=== PATIENT | male | born 1985 | race Hispanic/Latino ===

== ENCOUNTER 2017-10-10 21:39 | Emergency (ER) | payer OTHER ==
[2017-10-10] MEDS ORDERED: SODIUM CHLORIDE 0.9% 1000ML 1,000 ML IVS ONE (21:49)
--- NOTE | 2017-10-10 21:59 | ED.PDOC ---
History of Present Illness - General Chief Complaint: Cardiovascular Problem Stated Complaint: shortness of breath, chest pain Time Seen by Provider: 10/10/17 21:48 Source: patient, RN notes reviewed, Vital Signs reviewed Exam Limitations: no limitations Additional Information: pt reports that is having an anxiety attack, reports that has been injecting testosterone off the street and smoking THC. pt feels racing heart beat, no chest pain. EMS reports cramping to his hands and tingling to lips/ fingers as well as hyperventilation. no syncope, no edema to legs, no history of blood clot / KS/ CVA - History of Present Illness Timing/Duration: 1 hour Severity/Quality: moderate Location: substernal, other - palpitations Chest Pain Radiation: no radiation Activities at Onset: emotional stress Prior Chest Pain/Cardiac Workup: no prior chest pain Improving Factors: nothing Worsening Factors: nothing Associated Symptoms: shortness of breath Allergies/Adverse Reactions: Allergies NO KNOWN ALLERGY Allergy (Verified 10/10/17 21:50) Home Medications: Ambulatory Orders LORazepam [Ativan] 0.25 mg PO DAILY PRN #5 tab 10/10/17 Potassium Chloride [Potassium Chloride ER] 20 meq PO DAILY #3 tab 10/10/17 Sulfamethoxazole-Trimethoprim [Bactrim Ds 800-160 mg] 1 tablet PO BID #14 tablet 10/10/17 Review of Systems - Review of Systems Constitutional: States: no symptoms reported EENTM: States: no symptoms reported Respiratory: States: short of breath Cardiology: States: palpitations Gastrointestinal/Abdominal: States: nausea Genitourinary: States: no symptoms reported Musculoskeletal: States: other - cramping Skin: States: other - tingling Neurological: States: anxiety, paresthesia - to lips/ fingers Endocrine: States: no symptoms reported Hematologic/Lymphatic: States: no symptoms reported Past Medical History (General) - Patient Medical History Hx MRSA: Yes - Abdomen 2008; Armpit 2013 MRSA Source:: Wound Family Medical History - Family History Mother Family History: Unknown Physical Exam - Physical Exam General Appearance: Agitated, Alert, Anxious, Restless Eyes, Ears, Nose, Throat Exam: PERRL/EOMI, normal ENT inspection, TMs normal, pharynx normal Neck: non-tender, full range of motion, supple Respiratory: other - deep tachypnic breathing, no acetone lungs clear Cardiovascular/Chest: tachycardia Peripheral Pulses: radial,right: 2+, radial,left: 2+ Gastrointestinal/Abdominal: normal bowel sounds, non tender, soft Extremity: normal range of motion, non-tender, normal inspection, no pedal edema Neurologic: no motor/sensory deficits, alert, oriented x 3, other - anxious appearing, generalized non rhythmic tremor Skin Exam: normal color, warm/dry Progress - Progress Progress: 10/10/17 22:01 Discussed with patient his need to not take medications that were not prescribed to him. Discussed dangers of street medications and illicit drug use. Discussed side effects of Testosterone use. 10/10/17 22:04 EK10/10/17 time 21:57 sinus tachycardia, left atrial enlargement, rate 102, pr 146, qrs 90, qtc 445 10/10/17 22:35 pt feeling improved, discussed treatment for anxiety and advised close f/u; will return if acute problem; leukocytosis and hypokalemia in blood work, given self injections will treat for infection related to this. 10/10/17 21:49 URINE DRUG SCREEN, 7 ASSAY Stat Sodium Chloride 0.9% 1000ML [Ns 1000 ml] 1,000 ml IVS ONCE 10/10/17 22:00 EKG STAT 10/10/17 22:24 URINALYSIS Stat Laboratory Results WBC 14.9 K/mm3 (4.8-10.8) H 10/10/17 21:49 RBC 4.78 M/mm3 (4.70-6.10) 10/10/17 21:49 Hgb 14.7 gm/dL (14.0-18.0) 10/10/17 21:49 Hct 43.8 % (42.0-52.0) 10/10/17 21:49 MCV 91.6 fl (80.0-94.0) 10/10/17 21:49 MCH 30.8 pg (27.0-31.0) 10/10/17 21:49 MCHC 33.6 g/dL (33.0-37.0) 10/10/17 21:49 RDW 13.6 % (11.5-14.5) 10/10/17 21:49 Plt Count 246 K/mm3 (130-400) 10/10/17 21:49 MPV 8.8 fl (7.40-10.4) 10/10/17 21:49 Absolute Neuts (auto) 8.70 K/uL (1.8-6.8) H 10/10/17 21:49 Absolute Lymphs (auto) 3.90 K/uL (1.0-3.4) H 10/10/17 21:49 Absolute Monos (auto) 1.00 K/uL (0.2-0.8) H 10/10/17 21:49 Absolute Eos (auto) 1.20 K/uL (0.0-0.4) H 10/10/17 21:49 Absolute Basos (auto) 0.10 K/uL (0.0-0.1) 10/10/17 21:49 Neutrophils % 58.4 % (42.0-78.0) 10/10/17 21:49 Lymphocytes % 26.5 % (20.0-50.0) 10/10/17 21:49 Monocytes % 6.7 % (2.0-9.0) 10/10/17 21:49 Eosinophils % 7.9 % (1.0-5.0) H 10/10/17 21:49 Basophils % 0.5 % (0.0-2.0) 10/10/17 21:49 PT 11.8 SECONDS (9.4-12.5) 10/10/17 21:49 INR 1.020 10/10/17 21:49 PTT (SP) 32.2 SECONDS (25.1-36.5) 10/10/17 21:49 Sodium 139 mmol/L (135-145) 10/10/17 21:49 Potassium 2.7 mmol/L (3.6-5.0) L 10/10/17 21:49 Chloride 103 mmol/L (101-111) 10/10/17 21:49 Carbon Dioxide 27 mmol/L (21-31) 10/10/17 21:49 Anion Gap 11.7 (12-18) L 10/10/17 21:49 BUN 19 mg/dL (7-18) H 10/10/17 21:49 Creatinine 1.25 mg/dL (0.6-1.3) 10/10/17 21:49 BUN/Creatinine Ratio 15.2 (10-20) 10/10/17 21:49 Random Glucose 112 mg/dL (70-105) H 10/10/17 21:49 Serum Osmolality 280.5 mOsm/L (275-295) 10/10/17 21:49 Calcium 9.3 mg/dL (8.4-10.2) 10/10/17 21:49 Magnesium 2.1 mg/dL (1.8-2.5) 10/10/17 21:49 Total Bilirubin 0.7 mg/dL (0.2-1.0) 10/10/17 21:49 Direct Bilirubin 0.1 mg/dL (0-0.2) 10/10/17 21:49 Indirect Bilirubin 0.6 mg/dL (0.2-0.8) 10/10/17 21:49 AST 36 IU/L (10-42) 10/10/17 21:49 ALT 25 IU/L (10-60) 10/10/17 21:49 Alkaline Phosphatase 66 IU/L (42-121) 10/10/17 21:49 Creatine Kinase 331 IU/L (38-174) H* 10/10/17 21:49 CK-MB (CK-2) 4.9 ng/mL (0.0-4.4) H* 10/10/17 21:49 CK-MB (CK-2) % 1.48 % (0.0-3.5) 10/10/17 21:49 Troponin I < 0.02 ng/mL (0.01-0.05) 10/10/17 21:49 Serum Total Protein 8.1 gm/dL (6.4-8.2) 10/10/17 21:49 Albumin 5.0 g/dl (3.2-5.5) 10/10/17 21:49 Departure - Departure Clinical Impression: Palpitations, Anxiety, Hypokalemia, Elevated creatine kinase level, Neutrophilic leukocytosis Medication reaction Qualifiers: Encounter type: initial encounter Qualified Code(s): T88.7XXA - Unspecified adverse effect of drug or medicament, initial encounter Testosterone poisoning Qualifiers: Encounter type: initial encounter Injury intent: accidental or unintentional Qualified Code(s): T38.7X1A - Poisoning by androgens and anabolic congeners, accidental (unintentional), initial encounter Time of Disposition: 22:38 Disposition: Discharge to Home or Self Care Condition: Good Departure Forms: ED Discharge - Pt. Copy, Patient Portal Self Enrollment Instructions: DI for Chest Pain Diet: resume usual diet Activity: increase activity as tolerated Referrals: Naeem Mott MD [Primary Care Provider] - 1-5 Days Prescriptions: LORazepam [Ativan] 0.25 mg PO DAILY PRN #5 tab PRN Reason: Anxiety Potassium Chloride [Potassium Chloride ER] 20 meq PO DAILY #3 tab Sulfamethoxazole-Trimethoprim [Bactrim Ds 800-160 mg] 1 tablet PO BID #14 tablet Home Medications: Ambulatory Orders LORazepam [Ativan] 0.25 mg PO DAILY PRN #5 tab 10/10/17 Potassium Chloride [Potassium Chloride ER] 20 meq PO DAILY #3 tab 10/10/17 Sulfamethoxazole-Trimethoprim [Bactrim Ds 800-160 mg] 1 tablet PO BID #14 tablet 10/10/17
[2017-10-10] MEDS ORDERED: POTASSIUM CHLORIDE 20 MEQ TAB PO ONE (22:24)
[2017-10-10] MEDS ORDERED: SULFA/TRIMETH 800/160 (DS) TAB 1 EA TAB PO ONE (22:41)
[2017-10-10 23:00] VITALS: BP 139/90; TEMP 97.8; O2SAT 100
== END 2017-10-10 23:00 | disposition home or self-care (01) ==
LOC: ER 21:39
DX: T38.7X1A Poisoning by androgens and anabolic congeners, accidental (unintentional), initial encounter (principal); R00.2 Palpitations; F41.9 Anxiety disorder, unspecified; E87.6 Hypokalemia; D72.828 Other elevated white blood cell count; R94.4 Abnormal results of kidney function studies
CPT/HCPCS: 36415; 80048; 80076; 80307; 81001; 82550; 82553; 84484; 85025; 85610; 85730; 93005; J2060; J7030

== ENCOUNTER 2017-10-19 16:10 | Emergency (ER) | payer OTHER ==
--- NOTE | 2017-10-19 16:44 | ED.PDOC ---
History of Present Illness - General Chief Complaint: Cardiovascular Problem Stated Complaint: Elevated BP, weakness, SOB Time Seen by Provider: 10/19/17 16:41 Source: patient Exam Limitations: no limitations - History of Present Illness Initial Comments: patient comes in today for possible elevation of his blood pressure. Patient has been having difficulties over the past week. Patient states a week and half ago he started having episodes of elevations of his heart rate with heart rate of 180 required him to call EMS. At that time it resolved fairly quickly and workup was negative. Since then he had another episode on Sunday and then today again he felt like his heart rate was a little bit elevated. His heart rate monitor was reading 1:30 and his blood pressure was 150s systolic over 90 diastolic. Patient states because of that he was very concerned and thought he should have it checked out. On arrival his blood pressure is now in the 120s systolic with heart rate less than 100. Patient is currently on a Holter monitor and has been for the last 2 days but does not have results at this time. He has not yet had a download occur. Patient has no chest pain currently , shortness of breath, nausea, or vomiting. He is otherwise healthy. However, he did have local cancer that was removed a year ago. He does not use any illicit drugs other he admits he had tried testosterone about 3 weeks ago but stopped after the first injection. Patient used to take caffeinated drink of red bull every morning but stopped that when these symptoms first started. Currently he feels better and denies any acute symptoms. Timing/Duration: 1 hour Severity: mild Location: other Activities at Onset: rest Prior Chest Pain/Cardiac Workup: no prior chest pain Improving Factors: rest Worsening Factors: nothing Nitro Today/Relief: no nitro taken today Aspirin Treatment Today: no aspirin today Associated Symptoms: denies symptoms Allergies/Adverse Reactions: Allergies NO KNOWN ALLERGY Allergy (Verified 10/10/17 21:50) Home Medications: Ambulatory Orders LORazepam [Ativan] 0.25 mg PO DAILY PRN #5 tab 10/10/17 Potassium Chloride [Potassium Chloride ER] 20 meq PO DAILY #3 tab 10/10/17 Sulfamethoxazole-Trimethoprim [Bactrim Ds 800-160 mg] 1 tablet PO BID #14 tablet 10/10/17 Review of Systems - Review of Systems Constitutional: Denies: chills, diaphoresis, fever, weakness EENTM: States: no symptoms reported. Denies: eye pain, ear pain, throat pain Respiratory: States: no symptoms reported. Denies: cough, short of breath, wheezing Cardiology: States: other - elevated BP and tachycardia. Denies: chest pain, edema, palpitations Gastrointestinal/Abdominal: States: no symptoms reported. 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; Armpit 2012 MRSA Source:: Wound - Vaccination History Hx Tetanus, Diphtheria Vaccination: No Hx Influenza Vaccination: Yes - 2017 Hx Pneumococcal Vaccination: No - Social History Hx Tobacco Use: No Hx Alcohol Use: No Family Medical History - Family History Mother Family History: Unknown Living Status: Still Living Hx Family Hypertension: Yes Physical Exam - Physical Exam General Appearance: No apparent distress Eyes, Ears, Nose, Throat Exam: PERRL/EOMI, normal ENT inspection, TMs normal, pharynx normal Neck: non-tender, full range of motion, supple, normal inspection Respiratory: chest non-tender, lungs clear, normal breath sounds, no respiratory distress, no accessory muscle use Cardiovascular/Chest: normal peripheral pulses, regular rate, rhythm, no edema, no gallop, no JVD, no murmur Peripheral Pulses: radial,right: 2+, radial,left: 2+ Gastrointestinal/Abdominal: normal bowel sounds, non tender, soft, no organomegaly Neurologic: alert, oriented x 3 Progress - Progress Progress: 10/19/17 17:23 10/19/17 17:15 EKG STAT 10/19/17 17:30 EKG STAT Laboratory Results WBC 6.2 K/mm3 (4.8-10.8) 10/19/17 16:52 RBC 4.86 M/mm3 (4.70-6.10) 10/19/17 16:52 Hgb 15.1 gm/dL (14.0-18.0) 10/19/17 16:52 Hct 44.3 % (42.0-52.0) 10/19/17 16:52 MCV 91.1 fl (80.0-94.0) 10/19/17 16:52 MCH 31.1 pg (27.0-31.0) H 10/19/17 16:52 MCHC 34.2 g/dL (33.0-37.0) 10/19/17 16:52 RDWpatient 13.4 % (11.5-14.5) 10/19/17 16:52 Plt Count 230 K/mm3 (130-400) 10/19/17 16:52 MPV 8.6 fl (7.40-10.4) 10/19/17 16:52 Absolute Neuts (auto) 4.50 K/uL (1.8-6.8) 10/19/17 16:52 Absolute Lymphs (auto) 1.40 K/uL (1.0-3.4) 10/19/17 16:52 Absolute Monos (auto) 0.30 K/uL (0.2-0.8) 10/19/17 16:52 Absolute Eos (auto) 0.00 K/uL (0.0-0.4) 10/19/17 16:52 Absolute Basos (auto) 0.00 K/uL (0.0-0.1) 10/19/17 16:52 Neutrophils % 72.2 % (42.0-78.0) 10/19/17 16:52 Lymphocytes % 22.2 % (20.0-50.0) 10/19/17 16:52 Monocytes % 4.9 % (2.0-9.0) 10/19/17 16:52 Eosinophils % 0.3 % (1.0-5.0) L 10/19/17 16:52 Basophils % 0.4 % (0.0-2.0) 10/19/17 16:52 PT 11.0 SECONDS (9.3-10.7) H 10/19/17 16:52 INR 1.10 (0.9-1.15) 10/19/17 16:52 PTT (SP) 27.6 SECONDS (21.8-31.6) 10/19/17 16:52 Sodium 135 mmol/L (135-145) 10/19/17 16:52 Potassium 3.9 mmol/L (3.6-5.0) 10/19/17 16:52 Chloride 101 mmol/L (101-111) 10/19/17 16:52 Carbon Dioxide 24 mmol/L (21-31) 10/19/17 16:52 Anion Gap 13.9 (12-18) 10/19/17 16:52 BUN 16 mg/dL (7-18) 10/19/17 16:52 Creatinine 1.28 mg/dL (0.6-1.3) 10/19/17 16:52 BUN/Creatinine Ratio 12.5 (10-20) 10/19/17 16:52 Random Glucose 117 mg/dL (70-105) H 10/19/17 16:52 Serum Osmolality 272.3 mOsm/L (275-295) L 10/19/17 16:52 Calcium 9.9 mg/dL (8.4-10.2) 10/19/17 16:52 Magnesium 1.8 mg/dL (1.8-2.5) 10/19/17 16:52 Creatine Kinase 255 IU/L (38-174) H* 10/19/17 16:52 CK-MB (CK-2) 4.2 ng/mL (0.0-4.4) 10/19/17 16:52 CK-MB (CK-2) % 1.65 % (0.0-3.5) 10/19/17 16:52 Troponin I < 0.02 ng/mL (0.01-0.05) 10/19/17 16:52 10/19/17 17:24 patient feeling better with normal BP and normal HR now. Suspect runs of SVT but at this time normal sinus rhythm and he is already undergoing workup. Keep follow up with PCP and return to ER for chest pain, shortness of breath, sustained tachycardia - EKG/XRAY/CT EKG: Sinus, no ST T wave changes Comments: HR [address] changes and normal axis Departure - Departure Clinical Impression: Tachycardia Disposition: Discharge to Home or Self Care Condition: Good Departure Forms: ED Discharge - Pt. Copy, Patient Portal Self Enrollment Instructions: DI for Chest Pain Diet: regular diet Activity: no exercise Referrals: Naeem Mott MD [Primary Care Provider] - 1-2 Weeks Home Medications: Ambulatory Orders LORazepam [Ativan] 0.25 mg PO DAILY PRN #5 tab 10/10/17 Potassium Chloride [Potassium Chloride ER] 20 meq PO DAILY #3 tab 10/10/17 Sulfamethoxazole-Trimethoprim [Bactrim Ds 800-160 mg] 1 tablet PO BID #14 tablet 10/10/17 Additional Instructions: return to ER for chest pain, shortness of breath, sustained tachycardia. Follow -up with PCP for results of Holter monitor as previously scheduled
[2017-10-19 17:57] VITALS: BP 157/83; O2SAT 96
== END 2017-10-19 17:57 | disposition home or self-care (01) ==
LOC: ER 16:10
DX: R00.0 Tachycardia, unspecified (principal); R03.0 Elevated blood-pressure reading, without diagnosis of hypertension; R53.1 Weakness; R06.02 Shortness of breath; Z85.09 Personal history of malignant neoplasm of other digestive organs

== ENCOUNTER → 2017-11-27 | Outpatient (CLI) | payer OTHER ==
--- NOTE | 2017-11-27 17:34 | US ---
Procedure: US HEAD NECK SOFT TISSUE Exam Date: 11/27/2017 Ordering Provider: ARLEY GARVEY Clinical Indication: SWELLING,MASS AND LUMP Comparison: None Technique: Real time ultrasound was utilized for evaluation of the soft tissues of the posterior right neck. Findings/impression: In the superficial soft tissues of the posterior aspect of the right side of the neck there is a 0.8 x 0.2 x 0.7 cm benign-appearing lymph node. No suspicious lesions or fluid collections identified. Electronically signed by: Colt Patel MD 11/27/2017 5:32 PM CDT
== END ==
LOC: US 14:15
PROVIDERS: ATTEND Physician Assistant
DX: R22.9 Localized swelling, mass and lump, unspecified (principal)

== ENCOUNTER 2018-02-17 00:15 | Emergency (ER) | payer OTHER ==
[2018-02-17 00:28] VITALS: O2SAT 100
[2018-02-17] MEDS ORDERED: KETOROLAC TROMETHAMINE INJ 30 MG/ML VIAL IV ONE (00:34)
--- NOTE | 2018-02-17 00:43 | ED.PDOC ---
History of Present Illness - General Chief Complaint: Abdominal Pain Stated Complaint: Abd pain and cramping x 6 days Time Seen by Provider: 02/17/18 00:35 Information Source: patient Exam Limitations: no limitations - History of Present Illness Abdominal Pain Onset Location: RLQ, LLQ, generalized abdomen Pain Radiation: no radiation Quality: severe, cramping Timing/Duration: 24 hours Improving Factors: nothing Worsening Factors: nothing Associated Symptoms: denies symptoms Review of Systems - Review of Systems Constitutional: Denies: chills, fever EENTM: States: no symptoms reported Respiratory: States: no symptoms reported Cardiology: States: no symptoms reported Gastrointestinal/Abdominal: States: abdominal pain, constipation. 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 2008; Armpit 2013 MRSA Source:: Wound - Vaccination History Hx Tetanus, Diphtheria Vaccination: No Hx Influenza Vaccination: Yes - 2017 Hx Pneumococcal Vaccination: No - Social History Hx Tobacco Use: No Hx Alcohol Use: No Family Medical History - Family History Mother Family History: Unknown Living Status: Still Living Hx Family Hypertension: Yes Physical Exam - Physical Exam General Appearance: Alert, Obvious distress, Restless Eyes, Ears, Nose, Throat Exam: PERRL/EOMI, pharynx normal Neck: full range of motion, supple Respiratory: chest non-tender, lungs clear, normal breath sounds Cardiovascular/Chest: normal peripheral pulses, regular rate, rhythm Gastrointestinal/Abdominal: normal bowel sounds, distended, tenderness - diffuse tenderness with hyper active bowel sounds Back Exam: normal inspection, no CVA tenderness Extremity: normal range of motion, normal inspection, no pedal edema Neurologic: alert, normal mood/affect, oriented x 3 Skin Exam: normal color, warm/dry Lymphatic: no adenopathy Departure - Departure Clinical Impression: Abdominal pain Qualifiers: Abdominal location: generalized Qualified Code(s): R10.84 - Generalized abdominal pain Constipated Qualifiers: Constipation type: unspecified constipation type Qualified Code(s): K59.00 - Constipation, unspecified Disposition: Discharge to Home or Self Care Departure Forms: ED Discharge - Pt. Copy, Patient Portal Self Enrollment Instructions: DI for Abdominal Pain-Adult Referrals: Naeem Mott MD [Primary Care Provider] - 1-2 Weeks Prescriptions: Peg [id number] Bicarb-Sod Ch [Golytely] 4,000 ml PO ONCE #1 martha Home Medications: Ambulatory Orders Buspirone HCl [Buspirone HCl] 7.5 mg PO BID 02/17/18 Peg [id number] Bicarb-Sod Ch [Golytely] 4,000 ml PO ONCE #1 martha 02/17/18
--- NOTE | 2018-02-17 00:59 | RAD ---
EXAM DESCRIPTION: KUB CLINICAL HISTORY: 32 years Male abd pain COMPARISON: None. TECHNIQUE: Single view of the abdomen. FINDINGS: The upper abdomen was not entirely included on the film. No dilated loops of bowel to suggest obstruction. IMPRESSION: No acute plain film abnormality is identified. Electronically signed by: Tatiana Hernandez MD 02/17/2018 12:58 AM PROTECTION ANALYST
[2018-02-17] MEDS ORDERED: SODIUM CHLORIDE 0.9% 1000ML 1,000 ML IVS ONE (01:05)
[2018-02-17] MEDS ORDERED: SODIUM PHOS/BIPHOS ENEMA ADULT 133 ML BTTL PR ONE (01:28)
[2018-02-17 02:02] VITALS: BP 129/77; TEMP 97.2
== END 2018-02-17 02:02 | disposition home or self-care (01) ==
LOC: ER 00:15
DX: R10.84 Generalized abdominal pain (principal); K59.00 Constipation, unspecified; Z85.89 Personal history of malignant neoplasm of other organs and systems
CPT/HCPCS: 36415; 74018; 80053; 81001; 85025; J1885; J7030

== ENCOUNTER 2018-03-14 05:51 | Day surgery (SDC) | payer OTHER ==
[2018-03-14] MEDS ORDERED: SODIUM CHL 0.9% 100ML MINI-BAG 100 ML IVPB ONE (06:54)
[2018-03-14] MEDS ORDERED: LACTATED RINGERS 1,000 ML ONE (06:55)
[2018-03-14] MEDS ORDERED: ceFAZolin SODIUM 1 GM VIAL ONE (06:55)
[2018-03-14] MEDS ORDERED: SODIUM BICARBONATE VIAL 50 MEQ/50 ML VIAL ONE (07:29)
[2018-03-14] MEDS ORDERED: LIDOCAINE 1% 50 ML VIAL INJ ONE (07:29)
--- NOTE | 2018-03-14 09:22 | OP ---
DATE OF PROCEDURE: 03/14/18 PREOPERATIVE DIAGNOSIS: 1. Nonhealing lesion, left lower lip. POSTOPERATIVE DIAGNOSIS: 1. Nonhealing lesion, left lower lip, pending pathology. PROCEDURE: 1. Excision of nonhealing lesion, left lower lip. SURGEON: Greg George MD. AFTER SCHOOL PROGRAM DIRECTOR: None. ANESTHESIA: Local infiltration of 1% lidocaine. INDICATION: The patient is a 32-year-old male who has a history of a malignant laryngeal polyp who developed a mass just inside the vermilion border of the left side of his lower lip. He denied trauma and had been treated with antibiotics by his primary care physician with failure to resolve. It has not changed significantly. He was brought to the Surgical Suite today for excision after the risks, benefits and alternatives to the procedure were discussed and accepted. FINDINGS: The lesion was approximately 5 mm in length. The closed incision was approximately 8 mm in length. PROCEDURE: After the patient was brought to the Surgical Suite and placed in supine position, the head of the bed was elevated. He was then draped. At this point, the lower lip was grasped by the assistant finance director and pulled inferiorly and anteriorly. The area of the lesion was then prepped with Betadine solution. At this point, two 4-0 Prolene sutures were placed under the lesions anteriorly and posteriorly to elevate the lesion. It was then excised using a sharp knife and sent for pathological evaluation. Hemostasis was obtained with electrocautery. The wound was then closed with three interrupted 4-0 Vicryl simple sutures. The patient tolerated the procedure well. Estimated blood loss was less than 25 mL. All sponge, needle and instrument counts were correct. #[id number] [facility]
[2018-03-14 09:37] VITALS: BP 110/81; TEMP 98.5; O2SAT 98
== END 2018-03-14 09:35 | disposition home or self-care (01) ==
LOC: AMB 05:51
PROVIDERS: ATTEND Surgery
DX: K13.79 Other lesions of oral mucosa (principal); K59.00 Constipation, unspecified; F41.1 Generalized anxiety disorder; Z85.21 Personal history of malignant neoplasm of larynx; Z79.899 Other long term (current) drug therapy
CPT/HCPCS: 36415; 40812; 81001; 85025; J0690; J7050; J7120

== ENCOUNTER 2018-08-29 21:52 | Emergency (ER) | payer OTHER ==
[2018-08-29 22:36] VITALS: TEMP 96.7; O2SAT 100
--- NOTE | 2018-08-29 23:01 | RAD ---
EXAM DESCRIPTION: Abdomen Series CLINICAL HISTORY:33 years Male, abd pain Comparison: February 17, 2018 FINDINGS: No focal lung consolidation. No pleural effusion. No pneumothorax. Cardiac and mediastinal silhouette is unremarkable. No acute osseous abnormality. Soft tissues are unremarkable. Nonobstructive bowel gas pattern. No evidence of free air. IMPRESSION: No acute findings within the chest or abdomen. Electronically signed by: Saturnino Ta MD 08/29/2018 10:59 PM CDT
--- NOTE | 2018-08-29 23:12 | ED.PDOC ---
History of Present Illness - General Chief Complaint: GI Problem Stated Complaint: Abd pain Time Seen by Provider: 08/29/18 22:36 Information Source: patient Exam Limitations: no limitations - History of Present Illness Initial Comments: patient comes in today with 1 day history of lower abdominal pain and cramping with loose stools and diarrhea. Patient states he had significant discomfort on arrival but after passing gas and gotten considerably better. He has no nausea or vomiting. No sick contacts. No questionable by mouth intake. And no recent travel. Abdominal Pain Onset Location: generalized abdomen Pain Radiation: no radiation Quality: moderate, cramping Timing/Duration: 24 hours Improving Factors: other - flatulance Worsening Factors: nothing Associated Symptoms: diarrhea, fever/chills Review of Systems - Review of Systems Constitutional: States: chills. Denies: fever, malaise, weakness EENTM: States: no symptoms reported. Denies: eye pain, ear discharge, nose congestion, throat pain Respiratory: States: no symptoms reported. Denies: cough, short of breath, wheezing Cardiology: States: no symptoms reported. Denies: chest pain, palpitations Gastrointestinal/Abdominal: States: abdominal pain, diarrhea. Denies: nausea, vomiting Genitourinary: States: no symptoms reported Musculoskeletal: States: no symptoms reported Past Medical History (General) - Patient Medical History Hx Seizures: No Hx Stroke: No Hx Dementia: No Hx Asthma: No Hx of COPD: No Hx Cardiac Disorders: No Hx Congestive Heart Failure: No Hx Pacemaker: No Hx Hypertension: No Hx Thyroid Disease: No Hx Diabetes: No Hx Gastroesophageal Reflux: No Hx Renal Disease: No Hx Cancer: Yes - Vocal cord Hx Hepatitis C: No Hx MRSA: Yes - Abdomen 2008; Armpit 2012 MRSA Source:: Wound Surgical History: appendectomy - Vaccination History Hx Tetanus, Diphtheria Vaccination: No Hx Influenza Vaccination: Yes Hx Pneumococcal Vaccination: No - Social History Hx Tobacco Use: No Hx Chewing Tobacco Use: No Hx Alcohol Use: No Hx Substance Use: No Hx Substance Use Treatment: No Hx Depression: No Hx Physical Abuse: No Hx Emotional Abuse: No Hx Suspected Abuse: No Family Medical History - Family History Mother Family History: Unknown Living Status: Still Living Hx Family Hypertension: Yes Physical Exam - Physical Exam General Appearance: Alert, Comfortable, No apparent distress Eyes, Ears, Nose, Throat Exam: PERRL/EOMI, normal ENT inspection, TMs normal, pharynx normal Neck: non-tender, full range of motion, supple, normal inspection Respiratory: chest non-tender, lungs clear, normal breath sounds Cardiovascular/Chest: normal peripheral pulses, regular rate, rhythm, no edema, no gallop, no JVD, no murmur Gastrointestinal/Abdominal: normal bowel sounds, soft, no pulsatile mass, tenderness - mild TTP to lower quadrants without rebound or guarding Neurologic: alert, oriented x 3 Progress - Results/Orders Results/Orders: Laboratory Results Urine Color Other (Yellow) 08/29/18 22:10 Urine Appearance Clear (Clear) 08/29/18 22:10 Urine pH 5.5 (4.5-7.8) 08/29/18 22:10 Ur Specific [place] <= 1.005 (1.005-1.030) 08/29/18 22:10 Urine Protein Negative mg/dL 08/29/18 22:10 Urine Glucose (UA) Negative mg/dL (Negative) 08/29/18 22:10 Urine Ketones Negative mg/dL (NEGATIVE) 08/29/18 22:10 Urine Blood Trace-lysed (Negative) H 08/29/18 22:10 Urine Nitrite Negative 08/29/18 22:10 Urine Bilirubin Negative (NEGATIVE) 08/29/18 22:10 Urine Urobilinogen 0.2 mg/dL (0.2-1.0) 08/29/18 22:10 Ur Leukocyte Esterase Negative (Negative) 08/29/18 22:10 Urine RBC 0 /hpf 08/29/18 22:10 Urine WBC 0 /hpf 08/29/18 22:10 Ur Epithelial Cells 0 /hpf 08/29/18 22:10 Urine Bacteria 0 08/29/18 22:10 Patient Name: RODOLFO GLOVER Gender: Male Date of : 1985 Referring Physician: UNA QUINTANA Organization: [facility] Accession Number: [id number] Requested Date: August 29, 2018 22:16 Report Status: Final Requested Procedure: 1 Procedure Description: Abdomen Series Modality: CR Findings Reporting MD: Saturnino Ta Fellow MD: Not available Dictation Time: Otolaryngology Surgeon: Not available Supervisor Ride Assembly Date: EXAM DESCRIPTION: Abdomen Series CLINICAL HISTORY:33 years Male, abd pain Comparison: February 17, 2018 FINDINGS: No focal lung consolidation. No pleural effusion. No pneumothorax. Cardiac and mediastinal silhouette is unremarkable. No acute osseous abnormality. Soft tissues are unremarkable. Nonobstructive bowel gas pattern. No evidence of free air. IMPRESSION: No acute findings within the chest or abdomen. Electronically signed by: Saturnino Ta MD 08/29/2018 10:59 PM CDT Departure - Departure Clinical Impression: Diarrhea Qualifiers: Diarrhea type: unspecified type Qualified Code(s): R19.7 - Diarrhea, unspecified Disposition: Discharge to Home or Self Care Condition: Good Departure Forms: ED Discharge - Pt. Copy, Patient Portal Self Enrollment Referrals: Naeem Mott MD [Primary Care Provider] - 1-2 Weeks Home Medications: Ambulatory Orders Buspirone HCl 7.5 mg PO BID 02/17/18 Additional Instructions: gas x and pepto OTC . Return to Er for severe pain, intractable emesis.
[2018-08-29 23:18] VITALS: BP 127/83
== END 2018-08-29 23:18 | disposition home or self-care (01) ==
LOC: ER 21:52
DX: R19.7 Diarrhea, unspecified (principal); Z90.49 Acquired absence of other specified parts of digestive tract; Z85.89 Personal history of malignant neoplasm of other organs and systems